=== PATIENT | female | born 1995 | race Caucasian/White ===

== ENCOUNTER 2025-09-08 02:13 | Inpatient (IN) | payer BC, SELFPAY ==
[2025-09-08 02:59] VITALS: BP 133/66; BMI 33.2
[2025-09-08] MEDS: LR 1000 IV ×2 (03:05→10:48)
[2025-09-08] MEDS: PENICILLIN 110 UNITS IV (03:18)
[2025-09-08 03:27] LABS: Hematocrit 32.3 % (37.0-47.0); Hemoglobin 11.2 g/dL (12.0-16.0); Mean Corp Hgb Conc. 34.7 g/dL (33.0-37.0); Mean Corpuscular Volume 87.5 fL (81.0-99.0); Nucleated Red Blood Cells % 0 %; Platelet Count 263 10^3/uL (130-400); Red Cell Dist. Width 13.4 % (11.5-14.5)
[2025-09-08] MEDS: SUBLIMAZE 100 MCG EPIDURAL (03:47)
[2025-09-08] MEDS: FENTANYL/BUPIVACAINE 100 EPIDURAL ×2 (03:47→13:00)
[2025-09-08] MEDS: PENICILLIN 55 UNITS IV ×2 (07:05→11:10)
[2025-09-08 14:24] LABS: Cord VBG B.E. - POC -6.0 mmol/L; Cord VBG HCO3 - POC 20 mmol/L; Cord VBG O2 Sat % - POC 52.4 %; Cord VBG pCO2 - POC 42 mmHg; Cord VBG pH - POC 7.29; Cord VBG pO2 - POC 31 mmHg
[2025-09-08] MEDS: TYLENOL 650 MG PO (16:54)
[2025-09-08] MEDS: MOTRIN 600 MG PO (16:55)
[2025-09-08] MEDS: COLACE 100 MG PO (20:32)
[2025-09-09] MEDS: TYLENOL 650 MG PO ×3 (00:56→17:34)
[2025-09-09] MEDS: MOTRIN 600 MG PO ×3 (00:56→17:36)
[2025-09-09 05:17] LABS: Hematocrit 28.1 % (37.0-47.0); Hemoglobin 9.8 g/dL (12.0-16.0)
[2025-09-09] MEDS: COLACE 100 MG PO ×2 (09:29→20:36)
[2025-09-09] MEDS: PRENATAL PLUS 1 TABLET PO (09:29)
[2025-09-09] MEDS: FEOSOL 325 MG PO (17:36)
[2025-09-10] MEDS: MOTRIN 600 MG PO ×2 (01:15→08:47)
[2025-09-10] MEDS: TYLENOL 650 MG PO ×2 (01:15→08:46)
[2025-09-10 08:21] LABS: Cord ABG B.E. - POC -5.9 mmol/L; Cord ABG HCO3 - POC 25 mmol/L; Cord ABG pCO2 - POC 69 mmHg; Cord ABG pH - POC 7.16; Cord ABG pO2 - POC < 18 mmHg
[2025-09-10] MEDS: COLACE 100 MG PO (08:41)
[2025-09-10] MEDS: PRENATAL PLUS 1 TABLET PO (08:41)
[2025-09-10] MEDS: FEOSOL 325 MG PO (08:41)
[2025-09-10] MEDS: FLUZONE (6 mos+) 2025-2026 FORMULA 0.5 ML IM (10:09)
--- NOTE | 2025-09-10 13:52 | CM ---
CM reviewed chart, spoke with Nurse.
Consult received for PPD screening- patient has a therapist.
Nurse in to complete discharge paperwork, parents appropriate, no concerns.
CM will continue to follow.
Plan; home
== END 2025-09-10 14:41 | disposition home or self-care (01) | DRG 807 ==
LOC: LDRP 02:13
PROVIDERS: Obstetrics & Gynecology; ADMITTING PHYSICIAN Student in an Organized Health Care Education/Training Program
PROC: 0W8NXZZ Division of Female Perineum, External Approach (ICD-10-PCS; 2025-09-08)
PROC: 10E0XZZ Delivery of Products of Conception, External Approach (ICD-10-PCS; 2025-09-08)
PROC: 3E02340 Introduction of Influenza Vaccine into Muscle, Percutaneous Approach (ICD-10-PCS; 2025-09-10)
DX: O48.0 Post-term pregnancy (principal); Z37.0 Single live birth; Z3A.40 40 weeks gestation of pregnancy; O99.824 Streptococcus B carrier state complicating childbirth; O69.1XX0 Labor and delivery complicated by cord around neck, with compression, not applicable or unspecified; O77.0 Labor and delivery complicated by meconium in amniotic fluid; O76 Abnormality in fetal heart rate and rhythm complicating labor and delivery; O90.81 Anemia of the puerperium; D64.9 Anemia, unspecified; Z23 Encounter for immunization
CPT/HCPCS: 36415; 85014; 85018; 85025; 86780; 86850; 86900; 86901; 90656; G0008